=== PATIENT | female | born 1950 | race Caucasian/White ===

== ENCOUNTER 2022-09-03 20:00 | Emergency (ER) | payer MEDICARE, OTHER ==
[~2022-09-03] VITALS: Ht 167.6 cm; Wt 90.7 kg
[2022-09-03 20:14] VITALS: BP 144/55
[2022-09-03] MEDS ORDERED: Lasix20 MG PO (21:10)
== END 2022-09-03 21:32 | disposition home or self-care (01) ==
LOC: ER 20:00
DX: R60.0 Localized edema (principal); Z88.5 Allergy status to narcotic agent
CPT/HCPCS: 99283; A9270